=== PATIENT | female | born 1950 | race African-American/Black ===

== ENCOUNTER 2017-09-02 14:33 | Outpatient (CLI) | payer MEDICARE, MEDICAID ==
[~2017-09-02] VITALS: Ht 162.6 cm; Wt 52.2 kg
[2017-09-02 15:31] VITALS: BP 112/63
[2017-09-02] MEDS ORDERED: UNOBMED (15:43)
[2017-09-02] MEDS ORDERED: BP med (15:43)
--- NOTE | 2017-09-02 16:26 | GI Initial Consult Note ---
History of Present Illness General Date patient seen: Sep 02, 2017 Time patient seen: 16:21 Referring physician: Dr. Suggs Reason for Consultation: s/p ERCP, CBD Stone Present Illness HPI 66 year female patient seen by Dr. Duran at [facility] presents today to clinic for follow up s/p ERCP, noted with stent placement for biliary stricture and CBD stone. History of HTN, HLD, Jaundice, anemia, ETOH and cirrhosis. No general GI complaints noted by the patient. Denies any unintentional weight loss or changes in dietary habits. Patient with unsteady gait is a fall risk. Home Meds Reported Medications Unable to Obtain Medications (UNABLE TO OBTAIN MEDS) 1 Ea Ea 09/02/17 [BP med] No Conflict Check 09/02/17 Med list reviewed/reconciled: Yes Allergies: Coded Allergies: IBUPROFEN (Verified Allergy, Unknown, 09/02/17) Patient History Past Surgical History: none Family History Narrative Mother and sister with history of Breast CA. Social History Narrative History of heavy ETOH use, but has quit. tobacco user 1 pack daily denies drug/caffeine use Review of Systems All Other Systems: negative except mentioned in HPI Physical Exam Vital Signs Date Time Temp Pulse Resp B/P (MAP) Pulse Ox O2 Delivery O2 Flow Rate FiO2 09/02/17 15:31 98.4 93 18 112/63 93 98.4 Sp02 EP Interpretation: reviewed, normal General Appearance: well appearing, no apparent distress, alert Head: normocephalic EENT: PERRL/EOMI, normal ENT inspection Neck: supple Respiratory: normal breath sounds, no respiratory distress Cardiovascular: normal rate Gastrointestinal: normal inspection, non tender, soft, normal bowel sounds, non -distended Rectal: deferred Genitourinary: no CVA tenderness Musculoskeletal: normal inspection, back normal Neurologic: normal inspection, alert, oriented x3, responsive Psychiatric: normal inspection, judgement/insight normal, memory normal Skin: normal inspection, normal color, no rash, warm/dry, palpation normal, well hydrated Lymphatic: normal inspection, no adenopathy GI: Plan Problems: (1) Biliary stricture (2) Jaundice (3) ETOH abuse (4) Alcoholic cirrhosis (5) HTN (hypertension) (6) HLD (hyperlipidemia) Plan EGD with ERCP planned for 10/04/17. - NPO @ [place] day prior procedure explained to patient. will schedule for colonoscopy after this procedure. start Ursodiol Seen with Dr. Duran. Thank you for this patient referral. Fatmata Torrez N.P. Sep 02, 2017 16:26
== END 2017-09-02 15:05 | disposition home or self-care (01) ==
LOC: PAN 14:33
DX: K70.30 Alcoholic cirrhosis of liver without ascites (principal); R17 Unspecified jaundice; K83.1 Obstruction of bile duct; F10.10 Alcohol abuse, uncomplicated; I10 Essential (primary) hypertension; E78.5 Hyperlipidemia, unspecified; F17.200 Nicotine dependence, unspecified, uncomplicated; Z88.6 Allergy status to analgesic agent
CPT/HCPCS: 99212

== ENCOUNTER 2017-09-21 10:33 | Outpatient (CLI) | payer MEDICARE, MEDICAID ==
[~2017-09-21 10:33] MED LIST: BP med; UNOBMED
[2017-09-21] MEDS ORDERED: AMLODIPINE BESYL5 MG ORAL (10:54)
[2017-09-21] MEDS ORDERED: COMBIVENT RESPIM4 GM IH (10:54)
[2017-09-21] MEDS ORDERED: CALCIUM + VITA1 EAC1 PO (10:54)
[2017-09-21] MEDS ORDERED: ALBUTEROL2.5 MG/3 M INH (10:54)
[2017-09-21] MEDS ORDERED: TRIAMTERENE-HC1 EAC5 ORAL (10:54)
[2017-09-21] MEDS ORDERED: CIPRO500 MG PO (10:54)
[2017-09-21] MEDS ORDERED: SIMVASTATIN20 MG ORAL (10:54)
[2017-09-21 10:55] VITALS: BP 124/64
--- NOTE | 2017-09-22 09:33 | GI Progress Note ---
Assessment/Plan Problems: (1) Alcoholic cirrhosis ICD Codes: K70.30 - Alcoholic cirrhosis of liver without ascites SNOMED: 406669831 (2) Biliary stricture ICD Codes: K83.1 - Obstruction of bile duct SNOMED: 781853665 (3) Jaundice ICD Codes: R17 - Unspecified jaundice SNOMED: 40003477 (4) ETOH abuse ICD Codes: F10.10 - Alcohol abuse, uncomplicated SNOMED: 06463632 Status: stable Status Narrative Seen with Dr. Duran. Assessment/Plan resume ursodiol plan for ERCP on 10/04/17. - NPO @ [place] day prior procedure. low salt diet Subjective Subjective right foot swelling abdominal pain Objective Last 24 Hour Vital Signs Date Time Temp Pulse Resp B/P (MAP) Pulse Ox O2 Delivery O2 Flow Rate FiO2 09/21/17 10:55 97.7 81 16 124/64 95 97.7 General Appearance: WD/WN, no apparent distress, alert Cardiovascular: normal rate Respiratory/Chest: normal breath sounds, no respiratory distress Abdominal Exam: normal bowel sounds, non tender, soft Extremities: normal range of motion, non-tender Fatmata Torrez N.PLenin September 22, 2017 09:33
== END 2017-09-21 11:05 | disposition home or self-care (01) ==
LOC: PAN 10:33
DX: K70.30 Alcoholic cirrhosis of liver without ascites (principal); K83.1 Obstruction of bile duct; R17 Unspecified jaundice; F10.10 Alcohol abuse, uncomplicated
CPT/HCPCS: 99212

== ENCOUNTER 2017-10-04 07:25 | Day surgery (SDC) | payer MEDICARE, MEDICAID ==
[~2017-10-04] VITALS: Ht 162.6 cm; Wt 50.3 kg
[2017-10-04] VITALS (9 sets, daily range): BP systolic 110–155; BP diastolic 57–82
[~2017-10-04 07:25] MED LIST changes: +ALBUTEROL2.5 MG/3 M INH; +AMLODIPINE BESYL5 MG ORAL; +CALCIUM + VITA1 EAC1 PO; +CIPRO500 MG PO; +COMBIVENT RESPIM4 GM IH; +SIMVASTATIN20 MG ORAL; +TRIAMTERENE-HC1 EAC5 ORAL
[2017-10-04] MEDS ORDERED: Iothalamate Meglumine 60% 30ML INJ ONE ×2 (07:46→09:20)
--- NOTE | 2017-10-04 08:47 | Short Stay Surgery H&P ---
History of Present Illness History of Present Illness Chief Complaint see recent consult note HPI Jeannette Rodriguez is a 66 year old female who was admitted on for ERCP Patient History Allergies: Coded Allergies: No Known Allergies (Unverified , 10/04/17) Medication History Scheduled Calcium Carbonate/Vitamin D3 (Calcium + Vitamin D Tablet), 1 EACH PO DAILY, ( Reported) Simvastatin (Zocor), 20 MG ORAL BEDTIME, (Reported) Triamterene/Hydrochlorothiazide* (Dyazide 37.5-25 Mg Tab*), 1 TAB ORAL DAILY, ( Reported) Discontinued Medications Albuterol Sulfate* (Albuterol Sulfate Hhn*), 3 ML INH Q4H PRN for Shortness of Breath, (Reported) Discontinued Reason: Pt stopped taking med Amlodipine Besylate* (Amlodipine Besylate*), 5 MG ORAL DAILY, (Reported) Discontinued Reason: Pt stopped taking med Ciprofloxacin* (Cipro*), 500 MG PO BID, (Reported) Discontinued Reason: Medication dose changed Ipratropium/Albuterol Sulfate (Combivent Respimat Inhal [place]), 4 GM IH QID, ( Reported) Discontinued Reason: Pt stopped taking med Physical Exam Vital Signs Last Vital Signs Date Time Temp Pulse Resp B/P (MAP) Pulse Ox O2 Delivery O2 Flow Rate FiO2 10/04/17 08:12 97.2 80 18 132/79 98 Room Air 97.2 Labs Laboratory Tests Test 10/04/17 08:35 White Blood Count Pending Red Blood Count Pending Hemoglobin Pending Hematocrit Pending Mean Corpuscular Volume Pending Mean Corpuscular Hemoglobin Pending Mean Corpuscular Hemoglobin Concent Pending Red Cell Distribution Width Pending Platelet Count Pending Mean Platelet Volume Pending Neutrophils (%) (Auto) Pending Lymphocytes (%) (Auto) Pending Monocytes (%) (Auto) Pending Eosinophils (%) (Auto) Pending Basophils (%) (Auto) Pending Sodium Level Pending Potassium Level Pending Chloride Level Pending Carbon Dioxide Level Pending Blood Urea Nitrogen Pending Creatinine Pending Estimat Glomerular Filtration Rate Pending Glucose Level Pending Calcium Level Pending Total Bilirubin Pending Aspartate Amino Transf (AST/SGOT) Pending Alanine Aminotransferase (ALT/SGPT) Pending Alkaline Phosphatase Pending Total Protein Pending Albumin Pending Globulin Pending Amylase Level Pending Lipase Pending Plan Attestation Are the patient's medical conditions optimized for surgery? Abdirashid Duran MD October 04, 2017 08:47
--- NOTE | 2017-10-04 08:47 | Pre-Procedure Note/Attestation ---
Pre-Procedure Note/Attestation Complete Prior to Procedure Planned Procedure: not applicable Procedure Narrative: ercp Indications for Procedure Pre-Operative Diagnosis: stent removal Attestation I attest that I discussed the nature of the procedure; its benefits; risks and complications; and alternatives (and the risks and benefits of such alternatives ), prior to the procedure, with the patient (or the patient's legal traffic workforce representative). I attest that, if there was a reasonable possibility of needing a blood transfusion, the patient (or the patient's legal traffic workforce representative) was given the [facility] standardized written summary, pursuant to the [place] Blood Safety Act ([place] Health and Safety Code # 1645, as amended). I attest that I re-evaluated the patient just prior to the surgery and that there has been no change in the patient's H&P, except as documented below: Abdirashid Duran MD October 04, 2017 08:47
[2017-10-04 08:48] LABS: BASOPHILS % (AUTO) 1.9 % (0.0-2.0); EOSINOPHILS % (AUTO) 2.8 % (0.0-3.0); HEMATOCRIT 31.9 % (37.0-47.0); HEMOGLOBIN 10.4 G/DL (12.0-16.0); LYMPHOCYTES % (AUTO) 32.5 % (20.0-45.0); MEAN CORPUSCULAR VOLUME 98 FL (80-99); MONOCYTES % (AUTO) 10.8 % (1.0-10.0); NEUTROPHILS % (AUTO) 52.1 % (45.0-75.0); PLATELET COUNT 199 K/UL (150-450); RED BLOOD COUNT 3.27 M/UL (4.20-5.40); WHITE BLOOD COUNT 4.1 K/UL (4.8-10.8)
[2017-10-04] MEDS ORDERED: Lidocaine 1% MPF 10mg/ml 5ml ONE (09:00)
[2017-10-04] MEDS ORDERED: LR 1000ml ONE (09:00)
[2017-10-04] MEDS ORDERED: Alfentanil 2ml Inj ONE (09:00)
[2017-10-04] MEDS ORDERED: Ketamine 500mg Inj ONE (09:00)
[2017-10-04] MEDS ORDERED: Propofol 200mg/20ml IV ONE (09:00)
[2017-10-04] MEDS ORDERED: Midazolam 2mg/2ml Inj ONE (09:00)
[2017-10-04 09:14] LABS: ANION GAP 6 mmol/L (5-15); BLOOD UREA NITROGEN 8 mg/dL (7-18); CALCIUM 8.7 MG/DL (8.5-10.1); CARBON DIOXIDE 29 MMOL/L (21-32); CHLORIDE 104 MMOL/L (98-107); CREATININE 0.7 MG/DL (0.55-1.30); POTASSIUM 3.2 MMOL/L (3.5-5.1); SODIUM 139 MMOL/L (136-145)
[2017-10-04] MEDS ORDERED: LR 1000ml 1,000 ML IVLG SCH (09:20)
[2017-10-04 09:24] LABS: INR 1.1 (0.9-1.1)
[2017-10-04 09:25] LABS: ALANINE AMINOTRANSFERASE 28 U/L (12-78); ALBUMIN 1.8 G/DL (3.4-5.0); ALBUMIN/GLOBULIN RATIO 0.3 (1.0-2.7); ALKALINE PHOSPHATASE 148 U/L (46-116); AMYLASE 113 U/L (25-115); ASPARTATE AMINO TRANSFERASE 67 U/L (15-37); BILIRUBIN,DIRECT 2.9 MG/DL (0.0-0.3); BILIRUBIN,TOTAL 3.4 MG/DL (0.2-1.0)
[2017-10-04] MEDS ORDERED: Norco 5mg/325mg tab ORAL PRN (09:30)
[2017-10-04] MEDS ORDERED: LORazepam Inj 2mg/ml 1ml IV PRN (09:30)
[2017-10-04] MEDS ORDERED: Ketorolac 30mg Inj IV PRN ×2 (09:30)
[2017-10-04] MEDS ORDERED: Atropine Inj 1mg/10ml Syr IV PRN (09:30)
[2017-10-04] MEDS ORDERED: Labetalol 5mg/ml 20ml vial IV PRN (09:30)
[2017-10-04] MEDS ORDERED: Metoclopramide 10mg/2ml Inj IVP PRN (09:30)
[2017-10-04] MEDS ORDERED: fentaNYL 100 mcg/2 mL IV PRN (09:30)
[2017-10-04] MEDS ORDERED: DiphenhydrAMINE 50mg/ml Inj IVP PRN (09:30)
[2017-10-04] MEDS ORDERED: oxyCODONE HCL/Acetaminophen 5/325mg ORAL PRN (09:30)
[2017-10-04] MEDS ORDERED: Midazolam 2mg/2ml Inj IVP PRN (09:30)
[2017-10-04] MEDS ORDERED: HYDROcodone/Acetamin 7.5/325 tab ORAL PRN (09:30)
--- NOTE | 2017-10-04 09:31 | Immediate Post-Op Evaluation ---
Immediate Post-Op Evalulation Immediate Post-Op Evalulation Procedure: ERCP Date of Evaluation: October 04, 2017 Time of Evaluation: 10:24 IV Fluids: 600 NS Blood Products: 0 Estimated Blood Loss: 1 Urinary Output: 0 Blood Pressure Systolic: 133 Blood Pressure Diastolic: 78 Pulse Rate: 87 Respiratory Rate: 16 O2 Sat by Pulse Oximetry: 100 Temperature (Fahrenheit): 97 Pain Score (1-10): 2 Nausea: No Vomiting: No Complications 0 Patient Status: awake, reacts, patent, none Hydration Status: adequate Venu Hernandez MD October 04, 2017 09:31
--- NOTE | 2017-10-04 09:31 | Anethesia Preoperative Eval ---
Anesthesia Pre-op PMH/ROS General Date of Evaluation: October 04, 2017 Time of Evaluation: 08:51 Anesthesiologist: Salty ASA Score: ASA 3 Mallampati Score Class I : Soft palate, uvula, fauces, pillars visible Class II: Soft palate, uvula, fauces visible Class III: Soft palate, base of uvula visible Class IV: Only hard plate visible Mallampati Classification: Class II Surgeon: Renee Diagnosis: Weight Loss Surgical Procedure: ERCP Anesthesia History: none Social History: current smoker, alcohol use - Abuse Family History: no anesthesia problems Allergies: Coded Allergies: No Known Allergies (Unverified , 10/04/17) Medications: see eMAR Past Medical History Cardiovascular: Reports: HTN, other - HL Pulmonary: Reports: COPD Hematology/Immune: Reports: anemia PSxH Narrative: ERCP Anesthesia Pre-op Phys. Exam Physician Exam Last Vital Signs Date Time Temp Pulse Resp B/P (MAP) Pulse Ox O2 Delivery O2 Flow Rate FiO2 10/04/17 08:12 97.2 80 18 132/79 98 Room Air 97.2 Constitutional: NAD Neurologic: CN 2-12 intact Cardiovascular: RRR Respiratory: CTA Gastrointestinal: S/NT/ND Airway Exam Mallampati Score: Class II MO: full ROM: full Teeth: missing Anesthesia Pre-op A/P Labs Hematology Test 10/04/17 08:35 White Blood Count 4.1 K/UL (4.8-10.8) L Red Blood Count 3.27 M/UL (4.20-5.40) L Hemoglobin 10.4 G/DL (12.0-16.0) L Hematocrit 31.9 % (37.0-47.0) L Mean Corpuscular Volume 98 FL (80-99) Mean Corpuscular Hemoglobin 31.8 PG (27.0-31.0) H Mean Corpuscular Hemoglobin Concent 32.6 G/DL (32.0-36.0) Red Cell Distribution Width 12.0 % (11.6-14.8) Platelet Count 199 K/UL (150-450) Mean Platelet Volume 7.8 FL (6.5-10.1) Neutrophils (%) (Auto) 52.1 % (45.0-75.0) Lymphocytes (%) (Auto) 32.5 % (20.0-45.0) Monocytes (%) (Auto) 10.8 % (1.0-10.0) H Eosinophils (%) (Auto) 2.8 % (0.0-3.0) Basophils (%) (Auto) 1.9 % (0.0-2.0) Coagulation Test 10/04/17 09:05 Prothrombin Time Pending Prothromb Time International Ratio Pending Activated Partial Thromboplast Time Pending Chemistry Test 10/04/17 08:35 Sodium Level 139 MMOL/L (136-145) Potassium Level 3.2 MMOL/L (3.5-5.1) L Chloride Level 104 MMOL/L (98-107) Carbon Dioxide Level 29 MMOL/L (21-32) Anion Gap 6 mmol/L (5-15) Blood Urea Nitrogen 8 mg/dL (7-18) Creatinine 0.7 MG/DL (0.55-1.30) Estimat Glomerular Filtration Rate > 60 mL/min (>60) Glucose Level 77 MG/DL (74-106) Calcium Level 8.7 MG/DL (8.5-10.1) Total Bilirubin Pending Aspartate Amino Transf (AST/SGOT) Pending Alanine Aminotransferase (ALT/SGPT) Pending Alkaline Phosphatase Pending Total Protein Pending Albumin Pending Globulin Pending Amylase Level Pending Lipase Pending Risk Assessment & Plan Assessment: ASA 3 Plan: GA Status Change Before Surgery: Venu Machado MD October 04, 2017 09:31
--- NOTE | 2017-10-04 09:32 | 48 Hour Post Anesthesia Eval ---
Post Anesthesia Evaluation Procedure: ERCP Date of Evaluation: October 04, 2017 Time of Evaluation: 12:32 Blood Pressure Systolic: 136 0: 81 Pulse Rate: 87 Respiratory Rate: 18 Temperature (Fahrenheit): 98.1 O2 Sat by Pulse Oximetry: 100 Airway: patent Nausea: No Vomiting: No Pain Intensity: 2 Hydration Status: adequate Cardiopulmonary Status: Stable Mental Status/LOC: patient returned to baseline Follow-up Care/Observations: 0 Post-Anesthesia Complications: 0 Follow-up care needed: ready to discharge Venu Hernandez MD October 04, 2017 09:32
--- NOTE | 2017-10-04 11:19 | Endoscopy Procedure Note ---
Endoscopy Procedure Note General Indication for Procedure: CBD stent Procedures Performed: ERCP Operative Findings/Diagnosis: same Specimen: yes Pt Tolerated Procedure Well: Yes Estimated Blood Loss: none Anesthesia Anesthesiologist: ernesto Anesthesia: MAC Inserted Devices Implant(s) used?: No GI Core Measures 50 yrs or older w/o bx or poly: Not Applicable 10yrs. F/U not recommended: Not Applicable Abdirashid Duran MD October 04, 2017 11:19
--- NOTE | 2017-10-04 11:51 | Diagnostic Imaging Report ---
Indication: Abdominal pain. ERCP. Findings: Fluoroscopically captured images of the right upper quadrant of the abdomen demonstrate an endoscope with cannulation of the common bile duct and injection of contrast material. Prominent biliary ducts demonstrated. Inflation of the balloon in the distal part of the CBD noted for treatment of an apparent stricture. Subsequent placement of a stent noted. 20 fluoroscopic images obtained. Impression: ERCP as above
--- NOTE | 2017-10-04 13:50 | Cardiology Report ---
APPROVED REPORT EKG Measurement Heart [id number] Normal sinus rhythm Anterior infarct, age undetermined Abnormal ECG
--- NOTE | 2017-10-04 16:30 | Procedure Note ---
DATE OF PROCEDURE: 10/04/2017 SURGEON: Abdirashid Duran M.D. PROCEDURE PERFORMED: ERCP with stent removal, stone removal, dilatation, brush biopsy, regular biopsy, stent placement. ANESTHESIA: Per Dr. Hernandez. INSTRUMENT: Olympus adult flexible ERCP scope. INDICATION: Biliary stricture, biliary stone, stent removal. The procedure, risks, benefits, and possible consequences, including hemorrhage, aspiration, perforation and infection, and alternative treatments, were explained to the patient/legal guardian by Dr. Abdirashid Duran and the patient/legal guardian understood and accepted these risks. DESCRIPTION OF PROCEDURE: After informed consent was obtained and the patient was adequately sedated, ERCP scope was advanced from the mouth into the second portion of duodenum. Using a snare, the stent was removed from the distal common bile duct. Then a balloon was used to cannulate the common bile duct. Initial cholangiogram showed dilated common bile duct to about 12 mm in the proximal common bile duct. As we got close to the ampulla, sharply this 12 mm shrunk to about maybe 4 to 6 mm quickly. This suggests maybe a narrowing or stricture in the distal common bile duct. Then, over a guidewire, first we dilated distal common bile duct to about 8 mm using a standard balloon technology. Then, we used a balloon to sweep the duct multiple times to remove some very tiny small stones. No obvious big stone was removed. Then, we over a guidewire did insert brush and then, we did multiple simple biopsies of her distal common bile duct stricture area. I did not feel that the drainage of the common bile duct was adequate, so we decided to put another stent back in and we put a 10-Ken[place] 5 cm stent back into the common bile duct. The patient tolerated the procedure well without any complication. SUMMARY OF FINDINGS: 1. Questionable distal common bile duct stricture and also positive small tiny stones. 2. Status post ERCP, stent exchange, brush biopsy, simple biopsy, stone removal, dilatation, and stenting. RECOMMENDATIONS: 1. Follow up biopsy results and treat accordingly. 2. The patient needs to come back in the office for further evaluating the causes and possibility of the distal common bile duct stricture. 3. We will recommend repeat ERCP in about three months and removal of the stent. Abdirashid Yvette Duran DR: EDA JOB#: [id number] CC:
== END 2017-10-04 12:45 | disposition home or self-care (01) ==
LOC: SUR 07:25 → RAD 07:25
DX: K80.51 Calculus of bile duct without cholangitis or cholecystitis with obstruction (principal); I10 Essential (primary) hypertension; J44.9 Chronic obstructive pulmonary disease, unspecified; F17.200 Nicotine dependence, unspecified, uncomplicated
CPT/HCPCS: 36415; 43261; 43276; 74328; 76000; 80053; 82150; 82248; 82784; 82787; 83690; 85025; 85610; 85730; 86039; 93005; J2250; J2704; J3490; J7120; Q9961; 94003; 94150

== ENCOUNTER 2017-10-21 13:10 | Outpatient (CLI) | payer MEDICARE, MEDICAID ==
--- NOTE | 2017-10-21 16:16 | GI Progress Note ---
Assessment/Plan Problems: (1) Biliary stricture ICD Codes: K83.1 - Obstruction of bile duct SNOMED: 128831224 (2) Alcoholic cirrhosis ICD Codes: K70.30 - Alcoholic cirrhosis of liver without ascites SNOMED: 820101715 (3) Jaundice ICD Codes: R17 - Unspecified jaundice SNOMED: 06616419 (4) ETOH abuse ICD Codes: F10.10 - Alcohol abuse, uncomplicated SNOMED: 70858057 Status: stable Status Narrative Seen with Dr. Duran. Assessment/Plan SUMMARY OF FINDINGS: 1. Questionable distal common bile duct stricture and also positive small tiny stones. 2. Status post ERCP, stent exchange, brush biopsy, simple biopsy, stone removal , dilatation, and stenting. RECOMMENDATIONS: labs reviewed May need ERCP + metallic stent given history of CBD stricture cont ursodiol RTC x 2 months for ERCP scheduling for stent removal Subjective Gastrointestinal/Abdominal: Reports: no symptoms Objective General Appearance: WD/WN, no apparent distress, alert Cardiovascular: normal rate Respiratory/Chest: normal breath sounds, no respiratory distress Abdominal Exam: normal bowel sounds, non tender, soft Extremities: normal range of motion, non-tender Chris Torrez NP Oct 21, 2017 16:16
== END 2017-10-21 13:42 | disposition home or self-care (01) ==
LOC: PAN 13:10
DX: K83.1 Obstruction of bile duct (principal); K70.30 Alcoholic cirrhosis of liver without ascites; R17 Unspecified jaundice; F10.10 Alcohol abuse, uncomplicated
CPT/HCPCS: 99211

== ENCOUNTER 2017-10-28 09:38 | Outpatient (CLI) | payer MEDICARE, MEDICAID ==
[2017-10-28 10:07] LABS: BASOPHILS % (AUTO) 1.7 % (0.0-2.0); EOSINOPHILS % (AUTO) 3.3 % (0.0-3.0); HEMATOCRIT 38.3 % (37.0-47.0); HEMOGLOBIN 12.2 G/DL (12.0-16.0); MEAN CORPUSCULAR VOLUME 96 FL (80-99); MONOCYTES % (AUTO) 10.1 % (1.0-10.0); NEUTROPHILS % (AUTO) 40.9 % (45.0-75.0); PLATELET COUNT 206 K/UL (150-450); RED BLOOD COUNT 3.99 M/UL (4.20-5.40); RED CELL DISTRIBUTION WIDTH 11.5 % (11.6-14.8); WHITE BLOOD COUNT 4.7 K/UL (4.8-10.8)
[2017-10-28 10:10] LABS: INR 1.1 (0.9-1.1)
[2017-10-28 10:35] LABS: ALANINE AMINOTRANSFERASE 23 U/L (12-78); ALBUMIN 2.3 G/DL (3.4-5.0); ALBUMIN/GLOBULIN RATIO 0.3 (1.0-2.7); ALKALINE PHOSPHATASE 136 U/L (46-116); ANION GAP 4 mmol/L (5-15); ASPARTATE AMINO TRANSFERASE 48 U/L (15-37); BILIRUBIN,TOTAL 1.9 MG/DL (0.2-1.0); BLOOD UREA NITROGEN 9 mg/dL (7-18); CARBON DIOXIDE 31 MMOL/L (21-32); CHLORIDE 102 MMOL/L (98-107); CREATININE 0.8 MG/DL (0.55-1.30); POTASSIUM 3.1 MMOL/L (3.5-5.1); SODIUM 137 MMOL/L (136-145)
[2017-10-28 10:36] LABS: BILIRUBIN,DIRECT 1.5 MG/DL (0.0-0.3)
== END 2017-10-28 11:38 | disposition home or self-care (01) ==
LOC: LAB 09:38
DX: K74.60 Unspecified cirrhosis of liver (principal)
CPT/HCPCS: 80053; 82248; 85025; 85610

== ENCOUNTER 2017-12-21 10:20 | Outpatient (CLI) | payer MEDICARE, MEDICAID ==
--- NOTE | 2017-12-21 10:47 | GI Progress Note ---
Assessment/Plan Problems: (1) Biliary stricture ICD Codes: K83.1 - Obstruction of bile duct SNOMED: 286475742 (2) Alcoholic cirrhosis ICD Codes: K70.30 - Alcoholic cirrhosis of liver without ascites SNOMED: 349184727 (3) HLD (hyperlipidemia) ICD Codes: E78.5 - Hyperlipidemia, unspecified SNOMED: 23049065 (4) Jaundice ICD Codes: R17 - Unspecified jaundice SNOMED: 77078490 (5) ETOH abuse ICD Codes: F10.10 - Alcohol abuse, uncomplicated SNOMED: 92859646 Status: stable Status Narrative Seen with Dr. Duran. Assessment/Plan SUMMARY OF FINDINGS: Questionable distal common bile duct stricture and also positive small tiny stones. Status post ERCP, stent exchange, brush biopsy, simple biopsy, stone removal, dilatation, and stenting. RECOMMENDATIONS: ERCP scheduled 12/27/17 for stent removal. - NPO @ [place] day prior procedure explained to patient. The patient was seen and examined at bedside and all new and available data was reviewed in the patients chart. I agree with the above findings, impression and plan. (Patient seen earlier today. Signature stamp does not reflect patient encounter time.). - Abdirashid Duran MD Subjective Gastrointestinal/Abdominal: Reports: no symptoms Objective T 98.2 BP 144/76 P 87 97 RA General Appearance: WD/WN, no apparent distress, alert Cardiovascular: normal rate Respiratory/Chest: normal breath sounds, no respiratory distress Abdominal Exam: normal bowel sounds, non tender, soft Extremities: normal range of motion, non-tender Objective eyes have decreased jaundice Chris Torrez NP Dec 21, 2017 10:46
[2017-12-21 11:03] VITALS: BP 144/76
== END 2017-12-21 10:55 | disposition home or self-care (01) ==
LOC: PAN 10:20
DX: K83.1 Obstruction of bile duct (principal); K70.30 Alcoholic cirrhosis of liver without ascites; E78.5 Hyperlipidemia, unspecified; R17 Unspecified jaundice; F10.10 Alcohol abuse, uncomplicated
CPT/HCPCS: 99212

== ENCOUNTER 2018-01-03 13:09 | Outpatient (CLI) | payer MEDICARE, MEDICAID ==
[2018-01-03 13:17] VITALS: BP 117/61
--- NOTE | 2018-01-03 13:20 | GI Progress Note ---
Assessment/Plan Problems: (1) Biliary stricture ICD Codes: K83.1 - Obstruction of bile duct SNOMED: 238102921 (2) Alcoholic cirrhosis ICD Codes: K70.30 - Alcoholic cirrhosis of liver without ascites SNOMED: 521846555 (3) Jaundice ICD Codes: R17 - Unspecified jaundice SNOMED: 81950476 (4) ETOH abuse ICD Codes: F10.10 - Alcohol abuse, uncomplicated SNOMED: 08828577 Status: stable Status Narrative Discussed with Dr. Duran. Assessment/Plan SUMMARY OF FINDINGS reviewed with patient: History of common bile duct stricture etiology versus prior history of pancreatitis causing biliary stricture versus autoimmune given elevated IgG markers. PLAN: Plan will be to follow brush biopsy. >> no malignant cells identified. The patient to come back for another ERCP in three months. Next ERCP possibly have to put a metallic stent and a simple biopsy. Subjective Gastrointestinal/Abdominal: Reports: no symptoms Objective Last 24 Hour Vital Signs Date Time Temp Pulse Resp B/P (MAP) Pulse Ox O2 Delivery O2 Flow Rate FiO2 01/03/18 13:17 98.1 92 18 117/61 96 98.1 General Appearance: WD/WN, no apparent distress, alert Cardiovascular: normal rate Respiratory/Chest: normal breath sounds, no respiratory distress Abdominal Exam: normal bowel sounds, non tender, soft Extremities: normal range of motion, non-tender Chris Torrez FISCAL ECONOMIST Jan 03, 2018 13:20
== END 2018-01-03 13:41 | disposition home or self-care (01) ==
LOC: PAN 13:09
DX: K83.1 Obstruction of bile duct (principal); K70.30 Alcoholic cirrhosis of liver without ascites; R17 Unspecified jaundice; F10.10 Alcohol abuse, uncomplicated
CPT/HCPCS: 99212

== ENCOUNTER 2018-04-11 13:15 | Outpatient (CLI) | payer MEDICARE ==
[2018-04-11 13:29] VITALS: BP 121/62
[2018-04-11] MEDS ORDERED: URSODIOL300 MG ORAL (13:29)
--- NOTE | 2018-04-11 14:04 | GI Progress Note ---
Assessment/Plan Problems: (1) Biliary stricture ICD Codes: K83.1 - Obstruction of bile duct SNOMED: 451756566 (2) Alcoholic cirrhosis ICD Codes: K70.30 - Alcoholic cirrhosis of liver without ascites SNOMED: 872799510 (3) Jaundice ICD Codes: R17 - Unspecified jaundice SNOMED: 23270645 (4) ETOH abuse ICD Codes: F10.10 - Alcohol abuse, uncomplicated SNOMED: 72088296 Status: stable Status Narrative Discussed with Dr. Duran. Assessment/Plan ERCP to be scheduled 04/15/18. - NPO @ [place] day prior procedure. - labs to be drawn day of procedure >> BARBIE, IgG4 will follow with additional recs post procedure The patient was seen and examined at bedside and all new and available data was reviewed in the patients chart. I agree with the above findings, impression and plan. (Patient seen earlier today. Signature stamp does not reflect patient encounter time.). - Abdirashid Duran MD Subjective Subjective weight loss decrease in appetite Objective Last 24 Hour Vital Signs Date Time Temp Pulse Resp B/P (MAP) Pulse Ox O2 Delivery O2 Flow Rate FiO2 04/11/18 13:29 98.4 86 16 121/62 95 General Appearance: WD/WN, no apparent distress, alert, thin Cardiovascular: normal rate Respiratory/Chest: normal breath sounds, no respiratory distress Abdominal Exam: normal bowel sounds, non tender, soft Extremities: normal range of motion, non-tender Chris Torrez [employer] Apr 11, 2018 14:04
--- NOTE | 2018-04-11 15:29 | GI Initial Consult Note ---
History of Present Illness General Date patient seen: Apr 11, 2018 Time patient seen: 15:28 Reason for Consultation: STENT REMOVAL Present Illness HPI 66 year female patient seen by Dr. Duran at [facility] presents today for a repeat ERCP, s/p ERCP in December 2017 noted with common bile duct stricture etiology versus prior history of pancreatitis causing biliary stricture versus autoimmune given elevated IgG levels. History of HTN, HLD, Jaundice, anemia, ETOH and cirrhosis. Patient reports weight loss and decrease in appetite. Patient has unsteady gait and is a fall risk. Home Meds Reported Medications Ursodiol (URSODIOL*) 300 Mg Capsule, 300 MG ORAL TWICE A DAY, #30 CAP 0 Refills 04/11/18 Triamterene/Hydrochlorothiazide* (DYAZIDE 37.5-25 MG TAB*) 1 Each Tablet, 1 TAB ORAL DAILY, TAB 09/21/17 Simvastatin (ZOCOR) 20 Mg Tablet, 20 MG ORAL BEDTIME, TAB 09/21/17 Med list reviewed/reconciled: Yes Allergies: Coded Allergies: No Known Allergies (Unverified , 12/27/17) Patient History PMH Narrative see HPI. Past Surgical History: none Family History Narrative Mother and sister with history of Breast CA. Social History Narrative History of heavy ETOH use, but has quit. tobacco user 1 pack daily denies drug/caffeine use Social History: Denies: smoking, alcohol use, drug use, other Review of Systems All Other Systems: negative except mentioned in HPI Physical Exam Vital Signs Date Time Temp Pulse Resp B/P (MAP) Pulse Ox O2 Delivery O2 Flow Rate FiO2 04/11/18 13:29 98.4 86 16 121/62 95 Sp02 EP Interpretation: reviewed, normal General Appearance: well appearing, no apparent distress, alert, thin Head: normocephalic EENT: PERRL/EOMI, normal ENT inspection Neck: supple Respiratory: normal breath sounds, no respiratory distress Cardiovascular: normal rate Gastrointestinal: normal inspection, non tender, soft, normal bowel sounds, non -distended Rectal: deferred Genitourinary: no CVA tenderness Musculoskeletal: normal inspection, back normal Neurologic: normal inspection, alert, oriented x3, responsive Psychiatric: normal inspection, judgement/insight normal, memory normal Skin: normal inspection, normal color, no rash, warm/dry, palpation normal, well hydrated Lymphatic: normal inspection, no adenopathy GI: Plan Problems: (1) Biliary stricture (2) Alcoholic cirrhosis (3) Jaundice (4) HLD (hyperlipidemia) (5) HTN (hypertension) Plan ERCP for stent removal/possible metallic stent placement/biopsy to be scheduled 04/15/18. - NPO @ [place] day prior procedure. - labs to be drawn day of procedure >> BARBIE, IgG4 will follow with additional recs post procedure The patient was seen and examined at bedside and all new and available data was reviewed in the patients chart. I agree with the above findings, impression and plan. (Patient seen earlier today. Signature stamp does not reflect patient encounter time.). - MD [facility] Apr 11, 2018 15:29
== END 2018-04-11 13:45 | disposition home or self-care (01) ==
LOC: PAN 13:15
DX: K83.1 Obstruction of bile duct (principal); K70.30 Alcoholic cirrhosis of liver without ascites; E78.5 Hyperlipidemia, unspecified; I10 Essential (primary) hypertension; D64.9 Anemia, unspecified; F17.200 Nicotine dependence, unspecified, uncomplicated
CPT/HCPCS: 99202

== ENCOUNTER 2018-04-15 07:20 | Day surgery (SDC) | payer MEDICARE, MEDICAID ==
[2018-04-15] VITALS (9 sets, daily range): BP systolic 111–131; BP diastolic 63–74
[~2018-04-15] VITALS: Ht 162.6 cm; Wt 51.7 kg
[~2018-04-15 07:20] MED LIST changes: +URSODIOL300 MG ORAL
[2018-04-15] MEDS ORDERED: Iothalamate Meglumine 60% 30ML INJ ONE ×2 (07:53→09:30)
[2018-04-15] MEDS ORDERED: Succinylcholine 20mg/ml 10ml vial ONE (08:12)
[2018-04-15] MEDS ORDERED: Midazolam 2mg/2ml Inj ONE (08:12)
[2018-04-15] MEDS ORDERED: fentaNYL 100 mcg/2 mL IV ONE (08:12)
[2018-04-15] MEDS ORDERED: Propofol 200mg/20ml IV ONE (08:13)
--- NOTE | 2018-04-15 08:31 | Anethesia Preoperative Eval ---
Anesthesia Pre-op PMH/ROS General Date of Evaluation: Apr 15, 2018 Time of Evaluation: 08:28 Anesthesiologist: Rhiannon Thomas CRNA ASA Score: ASA 3 Mallampati Score Class I : Soft palate, uvula, fauces, pillars visible Class II: Soft palate, uvula, fauces visible Class III: Soft palate, base of uvula visible Class IV: Only hard plate visible Mallampati Classification: Class II Surgeon: Renee Diagnosis: Biliary stricture Surgical Procedure: ERCP Anesthesia History: none Social History: smoking - 52 pack years, current smoker, alcohol use - alcoholic cirrhosis Family History: no anesthesia problems Allergies: Coded Allergies: No Known Allergies (Unverified , 12/27/17) Medications: see eMAR Patient NPO?: Yes NPO Date: Apr 15, 2018 NPO Time: 00:00 Past Medical History Cardiovascular: Reports: HTN, other - Hyperlipidemia; Denies: CAD, [place], valve dz, arrhythmia Pulmonary: Denies: asthma, COPD, NAFISA, other Gastrointestinal/Genitourinary: Reports: other - jaundice, alcoholic cirrhosis ; biliary stricture of unknown etioloyg; Denies: GERD, CRI, ESRD Neurologic/Psychiatric: Denies: dementia, CVA, depression/anxiety, TIA, other Endocrine: Denies: DM, hypothyroidism, steroids, other HEENT: Denies: cataract (L), cataract (R), glaucoma, [place] (L), [place] (R), other Hematology/Immune: Reports: anemia; Denies: DVT, bleeding disorder, other Musculoskeletal/Integumentary: Denies: OA, RA, DJD, DDD, edema, other PMH Narrative: as above PSxH Narrative: ERCP December 2017 Anesthesia Pre-op Phys. Exam Physician Exam Last Vital Signs Date Time Temp Pulse Resp B/P (MAP) Pulse Ox O2 Delivery O2 Flow Rate FiO2 04/15/18 08:24 97.6 84 20 118/63 95 Room Air Constitutional: NAD Neurologic: CN 2-12 intact Cardiovascular: RRR Respiratory: CTA Gastrointestinal: S/NT/ND Airway Exam Mallampati Score: Class II MO: full Neck: no limitations TMD: 3 FB ROM: full Teeth: missing, broken Dentures: upper Anesthesia Pre-op A/P Labs labs from December 2017 reviewed Studies Pre-op Studies: EKG - NSR, low voltage QRS, borderline EKG Risk Assessment & Plan Assessment: ASA 3, ok to proceed Plan: MAC Status Change Before Surgery: No Pre-Antibiotics Given Within 1 Hr of Incision: Rhiannon Castillo CRNA Apr 15, 2018 08:31
--- NOTE | 2018-04-15 08:59 | Pre-Procedure Note/Attestation ---
Pre-Procedure Note/Attestation Complete Prior to Procedure Planned Procedure: not applicable Procedure Narrative: ercp Indications for Procedure Pre-Operative Diagnosis: CBD stricture Attestation I attest that I discussed the nature of the procedure; its benefits; risks and complications; and alternatives (and the risks and benefits of such alternatives ), prior to the procedure, with the patient (or the patient's legal senior sales representative). I attest that, if there was a reasonable possibility of needing a blood transfusion, the patient (or the patient's legal senior sales representative) was given the [facility] standardized written summary, pursuant to the Ron Ha Blood Safety Act ([place] Health and Safety Code # 1645, as amended). I attest that I re-evaluated the patient just prior to the surgery and that there has been no change in the patient's H&P, except as documented below: Abdirashid Duran MD Apr 15, 2018 08:59
[2018-04-15] MEDS ORDERED: LR 1000ml ONE (09:00)
--- NOTE | 2018-04-15 09:00 | Short Stay Surgery H&P ---
History of Present Illness History of Present Illness Chief Complaint see recent office note HPI Jeannette Rodriguez is a 67 year old female who was admitted on for Biliary Stricture Patient History Allergies: Coded Allergies: No Known Allergies (Unverified , 12/27/17) Medication History Scheduled Simvastatin (Zocor), 20 MG ORAL BEDTIME, (Reported) Triamterene/Hydrochlorothiazide* (Dyazide 37.5-25 Mg Tab*), 1 TAB ORAL DAILY, ( Reported) Ursodiol (Ursodiol*), 300 MG ORAL TWICE A DAY, (Reported) Physical Exam Vital Signs Last Vital Signs Date Time Temp Pulse Resp B/P (MAP) Pulse Ox O2 Delivery O2 Flow Rate FiO2 04/15/18 08:24 97.6 84 20 118/63 95 Room Air Labs Laboratory Tests Test 04/15/18 08:40 White Blood Count Pending Red Blood Count Pending Hemoglobin Pending Hematocrit Pending Mean Corpuscular Volume Pending Mean Corpuscular Hemoglobin Pending Mean Corpuscular Hemoglobin Concent Pending Red Cell Distribution Width Pending Platelet Count Pending Mean Platelet Volume Pending Neutrophils (%) (Auto) Pending Lymphocytes (%) (Auto) Pending Monocytes (%) (Auto) Pending Eosinophils (%) (Auto) Pending Basophils (%) (Auto) Pending Sodium Level Pending Potassium Level Pending Chloride Level Pending Carbon Dioxide Level Pending Blood Urea Nitrogen Pending Creatinine Pending Estimat Glomerular Filtration Rate Pending Glucose Level Pending Calcium Level Pending Total Bilirubin Pending Aspartate Amino Transf (AST/SGOT) Pending Alanine Aminotransferase (ALT/SGPT) Pending Alkaline Phosphatase Pending Total Protein Pending Albumin Pending Globulin Pending Immunoglobulin G Pending Immunoglobulin G1 Pending Immunoglobulin G2 Pending Immunoglobulin G3 Pending Immunoglobulin G4 Pending Anti-Nuclear Antibody Screen Pending Plan Attestation Are the patient's medical conditions optimized for surgery? Abdirashid Duran MD Apr 15, 2018 09:00
[2018-04-15 09:20] LABS: ANION GAP 9 mmol/L (5-15); BLOOD UREA NITROGEN 12 mg/dL (7-18); CALCIUM 9.6 MG/DL (8.5-10.1); CARBON DIOXIDE 27 MMOL/L (21-32); CHLORIDE 101 MMOL/L (98-107); CREATININE 0.8 MG/DL (0.55-1.30); POTASSIUM 3.8 MMOL/L (3.5-5.1); SODIUM 137 MMOL/L (136-145)
[2018-04-15 09:25] LABS: ALANINE AMINOTRANSFERASE 18 U/L (12-78); ALBUMIN/GLOBULIN RATIO 0.5 (1.0-2.7); ALKALINE PHOSPHATASE 120 U/L (46-116); ASPARTATE AMINO TRANSFERASE 24 U/L (15-37); BASOPHILS % (AUTO) 1.1 % (0.0-2.0); BILIRUBIN,TOTAL 0.6 MG/DL (0.2-1.0); EOSINOPHILS % (AUTO) 1.8 % (0.0-3.0); HEMATOCRIT 37.3 % (37.0-47.0); HEMOGLOBIN 12.1 G/DL (12.0-16.0); LYMPHOCYTES % (AUTO) 27.2 % (20.0-45.0); MEAN CORPUSCULAR VOLUME 91 FL (80-99); MONOCYTES % (AUTO) 8.4 % (1.0-10.0); NEUTROPHILS % (AUTO) 61.5 % (45.0-75.0); PLATELET COUNT 268 K/UL (150-450); RED BLOOD COUNT 4.11 M/UL (4.20-5.40); WHITE BLOOD COUNT 4.9 K/UL (4.8-10.8)
--- NOTE | 2018-04-15 09:48 | Endoscopy Procedure Note ---
Endoscopy Procedure Note General Indication for Procedure: biliary stricture Procedures Performed: ERCP Operative Findings/Diagnosis: same Specimen: yes Pt Tolerated Procedure Well: Yes Estimated Blood Loss: none Anesthesia Anesthesiologist: see chart Anesthesia: MAC Inserted Devices Implant(s) used?: No GI Core Measures 50 yrs or older w/o bx or poly: Not Applicable 10yrs. F/U not recommended: Not Applicable Abdirashid Duran MD Apr 15, 2018 09:47
--- NOTE | 2018-04-15 10:02 | Immediate Post-Op Evaluation ---
Immediate Post-Op Evalulation Immediate Post-Op Evalulation Procedure: ERCP with stent removal and replacement, stone removal Date of Evaluation: Apr 15, 2018 Time of Evaluation: 09:51 IV Fluids: LR 600 ml Blood Pressure Systolic: 125 Blood Pressure Diastolic: 68 Pulse Rate: 90 Respiratory Rate: 22 O2 Sat by Pulse Oximetry: 99 Temperature (Fahrenheit): 97.4 Pain Score (1-10): 0 Nausea: No Vomiting: No Complications none Patient Status: awake, reacts, patent Hydration Status: adequate Given Within 1 Hr of Incision: Rhiannon Castillo CRNA Apr 15, 2018 10:02
--- NOTE | 2018-04-15 10:39 | 48 Hour Post Anesthesia Eval ---
Post Anesthesia Evaluation Procedure: ERCP with stent removal and replacement, stone removal Date of Evaluation: Apr 15, 2018 Time of Evaluation: 10:37 Blood Pressure Systolic: 131 0: 74 Pulse Rate: 79 Respiratory Rate: 15 Temperature (Fahrenheit): 97.2 O2 Sat by Pulse Oximetry: 94 Airway: patent Nausea: No Vomiting: No Pain Intensity: 0 Hydration Status: adequate Cardiopulmonary Status: stable Mental Status/LOC: patient returned to baseline Follow-up Care/Observations: per GI Post-Anesthesia Complications: none Follow-up care needed: ready to discharge Rhiannon Thomas CRNA Apr 15, 2018 10:39
--- NOTE | 2018-04-15 11:35 | Diagnostic Imaging Report ---
INDICATION: Pain, intraoperative images during ERCP by Dr. Duran, jaundice, biliary stricture TECHNIQUE: Intraoperative imaging Fluoroscopy time: 3.5 seconds Total dose: 286 dGym2 Total number of images: 10 COMPARISON: 12/27/2017 FINDINGS: Initial image demonstrates a plastic endobiliary stent. Subsequent images demonstrate opacification of dilated common bile duct, common hepatic duct, and central intrahepatic ducts. Subsequent images demonstrate replacement of the plastic endobiliary stent. IMPRESSION: Intraoperative imaging, as described
--- NOTE | 2018-04-15 16:45 | Procedure Note ---
DATE OF PROCEDURE: 04/15/2018 SURGEON: Abdirashid Duran M.D. ANESTHESIOLOGIST: FILOMENA. PROCEDURE: ERCP with stent removal, balloon sweep, biopsy, and stent placement. ANESTHESIA: Per [facility]. Please see the chart. INSTRUMENT: Olympus ERCP scope. INDICATION: Biliary stricture, jaundice. The procedure, risks, benefits, and possible consequences, including hemorrhage, aspiration, perforation and infection, and alternative treatments, were explained to the patient/legal guardian by Dr. Abdirashid Duran and the patient/legal guardian understood and accepted these risks. DESCRIPTION OF PROCEDURE: After informed consent was obtained and the patient was adequately sedated, the ERCP scope was advanced from the mouth into the second portion of duodenum. The stent was still in the common bile duct. Using a snare, the stent was successfully removed. Then, we used a standard cannula to cannulate the common bile duct. Initial cholangiogram showed dilated proximal duct to about at least 12 mm with narrowing of the distal common bile duct or stricture in the distal common bile duct close to the ampulla. Then over a guidewire, we introduced the balloon to the duct and swept the duct. There was no obvious stone seen in the duct. We performed balloon occlusion cholangiogram which showed the same thing. Then we introduced the pediatric biopsy forceps and biopsied distal common bile duct. 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 Then at this time, over a guidewire, a 10-Jordanian 5 cm stent was successfully placed. After the stent was placed, the bile started draining much better. SUMMARY OF FINDINGS: 1. Persistent distal common bile duct stricture of unknown etiology at this time. 2. Status post biopsy of the ampulla and distal common bile duct to rule out autoimmune cholangiopathy. 3. Status post stent exchange. RECOMMENDATIONS: Follow up biopsy results and treat accordingly. Abdirashid Duran M.D. DR: Claudia JOB#: [id number] CC:
== END 2018-04-15 11:15 | disposition home or self-care (01) ==
LOC: GAS 07:20
DX: K83.1 Obstruction of bile duct (principal); R17 Unspecified jaundice; I10 Essential (primary) hypertension; E78.5 Hyperlipidemia, unspecified; D64.9 Anemia, unspecified
CPT/HCPCS: 36415; 43264; 43276; 74328; 76000; 80053; 82784; 82787; 85025; 86039; J0330; J2250; J2704; J3010; Q9961; 94003; 94150

== ENCOUNTER 2018-05-02 13:29 | Outpatient (CLI) | payer MEDICARE, MEDICAID ==
[2018-05-02 13:30] VITALS: BP 129/61
--- NOTE | 2018-05-02 14:06 | GI Progress Note ---
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 Duran. Assessment/Plan SUMMARY OF FINDINGS reviewed with patient: 1. Persistent distal common bile duct stricture of unknown etiology at this time. 2. Status post biopsy of the ampulla and distal common bile duct to rule out autoimmune cholangiopathy >> pathology incomplete, additional biopsy required. 3. Status post stent exchange. RECOMMENDATIONS: add trulance for constipation cont ursodiol cont Marinol qHS RTC x 2 months plan for ERCP + metallic stent placement The patient was seen and examined at bedside and all new and available data was reviewed in the patients chart. I agree with the above findings, impression and plan. (Patient seen earlier today. Signature stamp does not reflect patient encounter time.). - Abdirashid Duran MD Subjective Gastrointestinal/Abdominal: Reports: no symptoms Subjective overall feels better Objective T 98.2 BP 129/61 P 95 96 RA General Appearance: WD/WN, no apparent distress, alert, thin Cardiovascular: normal rate Respiratory/Chest: normal breath sounds, no respiratory distress Abdominal Exam: normal bowel sounds, non tender, soft Extremities: normal range of motion, non-tender Chris Torrez WAFER FABRICATION OPERATOR May 02, 2018 14:06
[2018-05-05] MEDS ORDERED: MARINOL2.5 MG ORAL (14:06)
== END 2018-05-02 13:59 | disposition home or self-care (01) ==
LOC: PAN 13:29
DX: R68.89 Other general symptoms and signs (principal); K83.1 Obstruction of bile duct; K70.30 Alcoholic cirrhosis of liver without ascites; I10 Essential (primary) hypertension
CPT/HCPCS: 99212

== ENCOUNTER 2018-09-20 09:59 | Outpatient (CLI) | payer MEDICARE, MEDICAID ==
[~2018-09-20 09:59] MED LIST changes: +MARINOL2.5 MG ORAL
[2018-09-20 10:15] VITALS: BP 138/68
--- NOTE | 2018-09-20 10:31 | General Progress Note ---
Assessment/Plan Problem List: (1) ETOH abuse ICD Codes: F10.10 - Alcohol abuse, uncomplicated SNOMED: 52078052 (2) High total IgG ICD Codes: R68.89 - Other general symptoms and signs SNOMED: 888921321 (3) Biliary stricture ICD Codes: K83.1 - Obstruction of bile duct SNOMED: 058417544 (4) HTN (hypertension) ICD Codes: I10 - Essential (primary) hypertension SNOMED: 29570603 (5) Alcoholic cirrhosis ICD Codes: K70.30 - Alcoholic cirrhosis of liver without ascites SNOMED: 081247560 (6) Jaundice ICD Codes: R17 - Unspecified jaundice SNOMED: 43114898 Assessment/Plan: plan ERCP this week Subjective ROS Limited/Unobtainable: Yes Allergies: Coded Allergies: No Known Allergies (Unverified , 12/27/17) Objective General Appearance: alert EENT: normal ENT inspection Neck: supple Cardiovascular: normal rate Respiratory/Chest: lungs clear Abdomen: normal bowel sounds, non tender, soft Extremities: non-tender Abdirashid Duran MD September 20, 2018 10:31
[2018-09-20] MEDS ORDERED: COLON HERBAL C1 EACH PO (13:57)
[2018-09-20] MEDS ORDERED: VITAMIN D1000 UNI1 ORAL (13:57)
== END 2018-09-20 12:54 | disposition home or self-care (01) ==
LOC: PAN 09:59
DX: K83.1 Obstruction of bile duct (principal); F10.10 Alcohol abuse, uncomplicated; R68.89 Other general symptoms and signs; I10 Essential (primary) hypertension; K70.30 Alcoholic cirrhosis of liver without ascites; R17 Unspecified jaundice
CPT/HCPCS: 99212

== ENCOUNTER 2018-09-23 10:26 | Day surgery (SDC) | payer MEDICARE, MEDICAID ==
[2018-09-23] VITALS (8 sets, daily range): BP systolic 118–167; BP diastolic 62–95
[~2018-09-23] VITALS: Ht 162.6 cm; Wt 52.2 kg
[~2018-09-23 10:26] MED LIST changes: +COLON HERBAL C1 EACH PO; +Midazolam 2mg/2ml Inj ONE; +VITAMIN D1000 UNI1 ORAL; +fentaNYL 100 mcg/2 mL IV ONE
[2018-09-23 12:01] LABS: BASOPHILS % (AUTO) 1.3 % (0.0-2.0); HEMATOCRIT 40.4 % (37.0-47.0); HEMOGLOBIN 12.9 G/DL (12.0-16.0); LYMPHOCYTES % (AUTO) 38.6 % (20.0-45.0); MEAN CORPUSCULAR VOLUME 93 FL (80-99); MONOCYTES % (AUTO) 8.1 % (1.0-10.0); NEUTROPHILS % (AUTO) 50.1 % (45.0-75.0); PLATELET COUNT 241 K/UL (150-450); RED BLOOD COUNT 4.35 M/UL (4.20-5.40); RED CELL DISTRIBUTION WIDTH 11.6 % (11.6-14.8); WHITE BLOOD COUNT 4.9 K/UL (4.8-10.8)
[2018-09-23 12:11] LABS: ANION GAP 7 mmol/L (5-15); BLOOD UREA NITROGEN 11 mg/dL (7-18); CALCIUM 9.3 MG/DL (8.5-10.1); CARBON DIOXIDE 29 MMOL/L (21-32); CHLORIDE 102 MMOL/L (98-107); CREATININE 0.8 MG/DL (0.55-1.30); POTASSIUM 4.2 MMOL/L (3.5-5.1); SODIUM 137 MMOL/L (136-145)
[2018-09-23 12:15] LABS: ALANINE AMINOTRANSFERASE 16 U/L (12-78); ALBUMIN 3.4 G/DL (3.4-5.0); ALBUMIN/GLOBULIN RATIO 0.7 (1.0-2.7); ALKALINE PHOSPHATASE 120 U/L (46-116); ASPARTATE AMINO TRANSFERASE 22 U/L (15-37); BILIRUBIN,TOTAL 0.6 MG/DL (0.2-1.0)
[2018-09-23] MEDS ORDERED: Iothalamate Meglumine 60% 30ML INJ ONE ×2 (12:50→13:25)
[2018-09-23] MEDS ORDERED: Propofol 200mg/20ml IV ONE (13:09)
[2018-09-23] MEDS ORDERED: Lidocaine 1% MPF 10mg/ml 5ml ONE (13:09)
[2018-09-23] MEDS ORDERED: Esmolol 100mg/10ml Inj ONE (13:09)
--- NOTE | 2018-09-23 13:17 | Pre-Procedure Note/Attestation ---
Pre-Procedure Note/Attestation Complete Prior to Procedure Planned Procedure: not applicable Procedure Narrative: ercp Indications for Procedure Pre-Operative Diagnosis: biliary stricture Attestation I attest that I discussed the nature of the procedure; its benefits; risks and complications; and alternatives (and the risks and benefits of such alternatives ), prior to the procedure, with the patient (or the patient's legal novelties sales representative). I attest that, if there was a reasonable possibility of needing a blood transfusion, the patient (or the patient's legal novelties sales representative) was given the [facility] standardized written summary, pursuant to the [place] Blood Safety Act ([place] Health and Safety Code # 1645, as amended). I attest that I re-evaluated the patient just prior to the surgery and that there has been no change in the patient's H&P, except as documented below: Abdirashid Duran MD September 23, 2018 13:17
--- NOTE | 2018-09-23 13:18 | Short Stay Surgery H&P ---
History of Present Illness History of Present Illness Chief Complaint biliary stricture HPI Jeannette Rodriguez is a 67 year old female who was admitted on for Stent Removal Patient History Allergies: Coded Allergies: No Known Allergies (Unverified , 12/27/17) PAST MEDICAL HISTORY: (1) ETOH abuse (2) High total IgG (3) Biliary stricture (4) HTN (hypertension) (5) Alcoholic cirrhosis (6) Jaundice Medication History Scheduled Cholecalciferol (Vitamin D3)* (Vitamin D*), Unknown Dose ORAL DAILY, (Reported) Simvastatin (Zocor), 20 MG ORAL BEDTIME, (Reported) Triamterene/Hydrochlorothiazide* (Dyazide 37.5-25 Mg Tab*), 1 TAB ORAL DAILY, ( Reported) Ursodiol (Ursodiol*), 300 MG ORAL TWICE A DAY, (Reported) Miscellaneous Medications Herbal Drugs (Colon Herbal Cleanser), 1 EACH PO, (Reported) Discontinued Medications Dronabinol* (Marinol*), Unknown Dose ORAL THREE TIMES A DAY, (Reported) Discontinued Reason: Pt stopped taking med Review of Systems Cardiovascular: Reports: no symptoms Respiratory: Reports: no symptoms Gastrointestinal: Reports: no symptoms Genitourinary: Reports: no symptoms Neurologic: Reports: no symptoms Endocrine: Reports: no symptoms Hematologic: Reports: no symptoms Physical Exam Vital Signs Last Vital Signs Date Time Temp Pulse Resp B/P (MAP) Pulse Ox O2 Delivery O2 Flow Rate FiO2 09/23/18 11:16 Room Air 09/23/18 11:09 97.4 83 18 135/68 97 Labs Laboratory Tests Test 09/23/18 11:40 White Blood Count 4.9 K/UL (4.8-10.8) Red Blood Count 4.35 M/UL (4.20-5.40) Hemoglobin 12.9 G/DL (12.0-16.0) Hematocrit 40.4 % (37.0-47.0) Mean Corpuscular Volume 93 FL (80-99) Mean Corpuscular Hemoglobin 29.6 PG (27.0-31.0) Mean Corpuscular Hemoglobin Concent 31.9 G/DL (32.0-36.0) L Red Cell Distribution Width 11.6 % (11.6-14.8) Platelet Count 241 K/UL (150-450) Mean Platelet Volume 7.6 FL (6.5-10.1) Neutrophils (%) (Auto) 50.1 % (45.0-75.0) Lymphocytes (%) (Auto) 38.6 % (20.0-45.0) Monocytes (%) (Auto) 8.1 % (1.0-10.0) Eosinophils (%) (Auto) 2.0 % (0.0-3.0) Basophils (%) (Auto) 1.3 % (0.0-2.0) Sodium Level 137 MMOL/L (136-145) Potassium Level 4.2 MMOL/L (3.5-5.1) Chloride Level 102 MMOL/L (98-107) Carbon Dioxide Level 29 MMOL/L (21-32) Anion Gap 7 mmol/L (5-15) Blood Urea Nitrogen 11 mg/dL (7-18) Creatinine 0.8 MG/DL (0.55-1.30) Estimat Glomerular Filtration Rate > 60 mL/min (>60) Glucose Level 71 MG/DL (74-106) L Calcium Level 9.3 MG/DL (8.5-10.1) Total Bilirubin 0.6 MG/DL (0.2-1.0) Aspartate Amino Transf (AST/SGOT) 22 U/L (15-37) Alanine Aminotransferase (ALT/SGPT) 16 U/L (12-78) Alkaline Phosphatase 120 U/L (46-116) H Total Protein 8.5 G/DL (6.4-8.2) H Albumin 3.4 G/DL (3.4-5.0) Globulin 5.1 g/dL Albumin/Globulin Ratio 0.7 (1.0-2.7) L Skin: normal HENT: normal Heart: normal Lungs: normal Abdomen: normal Extremities: normal Plan Plan of Care ercp Attestation Are the patient's medical conditions optimized for surgery? Attestation Response: yes Abdirashid Duran MD September 23, 2018 13:18
--- NOTE | 2018-09-23 13:41 | Anethesia Preoperative Eval ---
Anesthesia Pre-op PMH/ROS General Date of Evaluation: September 23, 2018 Time of Evaluation: 13:08 Anesthesiologist: Rhiannon Thomas CRNA ASA Score: ASA 3 Mallampati Score Class I : Soft palate, uvula, fauces, pillars visible Class II: Soft palate, uvula, fauces visible Class III: Soft palate, base of uvula visible Class IV: Only hard plate visible Mallampati Classification: Class II Surgeon: Renee Diagnosis: biliary stent Surgical Procedure: ERCP, stent removal, balloon dilation Anesthesia History: none Social History: smoking, alcohol use - hx of etoh abuse, now sober Family History: no anesthesia problems Allergies: Coded Allergies: No Known Allergies (Unverified , 12/27/17) Medications: see eMAR Patient NPO?: Yes Past Medical History Cardiovascular: Reports: HTN, other - hyperlipidemia; Denies: CAD, [place], valve dz, arrhythmia Gastrointestinal/Genitourinary: Reports: other - alcoholic cirrohis, biliary stricture s/p ERCP and lap james; Denies: GERD, CRI, ESRD Neurologic/Psychiatric: Reports: depression/anxiety; Denies: dementia, CVA, TIA, other Endocrine: Denies: DM, hypothyroidism, steroids, other HEENT: Denies: cataract (L), cataract (R), glaucoma, [place] (L), [place] (R), other Hematology/Immune: Reports: anemia Musculoskeletal/Integumentary: Denies: OA, RA, DJD, DDD, edema, other PMH Narrative: as note above PSxH Narrative: lap james, ERCP Anesthesia Pre-op Phys. Exam Physician Exam Last Vital Signs Date Time Temp Pulse Resp B/P (MAP) Pulse Ox O2 Delivery O2 Flow Rate FiO2 09/23/18 11:16 Room Air 09/23/18 11:09 97.4 83 18 135/68 97 Constitutional: NAD Neurologic: CN 2-12 intact Cardiovascular: RRR Respiratory: CTA Gastrointestinal: S/NT/ND Airway Exam Mallampati Score: Class II MO: full Neck: FROM TMD: > 3 FB ROM: full Teeth: missing, broken Dentures: no upper, no lower Anesthesia Pre-op A/P Labs Hematology Test 09/23/18 11:40 White Blood Count 4.9 K/UL (4.8-10.8) Red Blood Count 4.35 M/UL (4.20-5.40) Hemoglobin 12.9 G/DL (12.0-16.0) Hematocrit 40.4 % (37.0-47.0) Mean Corpuscular Volume 93 FL (80-99) Mean Corpuscular Hemoglobin 29.6 PG (27.0-31.0) Mean Corpuscular Hemoglobin Concent 31.9 G/DL (32.0-36.0) L Red Cell Distribution Width 11.6 % (11.6-14.8) Platelet Count 241 K/UL (150-450) Mean Platelet Volume 7.6 FL (6.5-10.1) Neutrophils (%) (Auto) 50.1 % (45.0-75.0) Lymphocytes (%) (Auto) 38.6 % (20.0-45.0) Monocytes (%) (Auto) 8.1 % (1.0-10.0) Eosinophils (%) (Auto) 2.0 % (0.0-3.0) Basophils (%) (Auto) 1.3 % (0.0-2.0) Chemistry Test 09/23/18 11:40 Sodium Level 137 MMOL/L (136-145) Potassium Level 4.2 MMOL/L (3.5-5.1) Chloride Level 102 MMOL/L (98-107) Carbon Dioxide Level 29 MMOL/L (21-32) Anion Gap 7 mmol/L (5-15) Blood Urea Nitrogen 11 mg/dL (7-18) Creatinine 0.8 MG/DL (0.55-1.30) Estimat Glomerular Filtration Rate > 60 mL/min (>60) Glucose Level 71 MG/DL (74-106) L Calcium Level 9.3 MG/DL (8.5-10.1) Total Bilirubin 0.6 MG/DL (0.2-1.0) Aspartate Amino Transf (AST/SGOT) 22 U/L (15-37) Alanine Aminotransferase (ALT/SGPT) 16 U/L (12-78) Alkaline Phosphatase 120 U/L (46-116) H Total Protein 8.5 G/DL (6.4-8.2) H Albumin 3.4 G/DL (3.4-5.0) Globulin 5.1 g/dL Albumin/Globulin Ratio 0.7 (1.0-2.7) L Studies Pre-op Studies: EKG - NSR, inferior infarct, anterior infarct Risk Assessment & Plan Assessment: ASA 3, ok to proceed Plan: MAC Status Change Before Surgery: No Pre-Antibiotics Given Within 1 Hr of Incision: Rhiannon Castillo CRNA September 23, 2018 13:41
--- NOTE | 2018-09-23 13:57 | Endoscopy Procedure Note ---
Endoscopy Procedure Note General Indication for Procedure: biliary stricture Procedures Performed: ERCP Operative Findings/Diagnosis: same Specimen: none Pt Tolerated Procedure Well: Yes Estimated Blood Loss: none Anesthesia Anesthesiologist: joseline Anesthesia: MAC Inserted Devices Implant(s) used?: No GI Core Measures 50 yrs or older w/o bx or poly: Not Applicable 10yrs. F/U not recommended: Not Applicable Abdirashid Duran MD September 23, 2018 13:57
--- NOTE | 2018-09-23 14:06 | Immediate Post-Op Evaluation ---
Immediate Post-Op Evalulation Immediate Post-Op Evalulation Procedure: ERCP, stent removal, balloon dilation Date of Evaluation: September 23, 2018 Time of Evaluation: 14:00 IV Fluids: 0.9 NS 500 ml Blood Pressure Systolic: 167 Blood Pressure Diastolic: 95 Pulse Rate: 98 Respiratory Rate: 18 O2 Sat by Pulse Oximetry: 100 Temperature (Fahrenheit): 97.4 Pain Score (1-10): 6 Nausea: No Vomiting: No Complications none Patient Status: awake, reacts Hydration Status: adequate Given Within 1 Hr of Incision: Rhiannon Castillo CRNA September 23, 2018 14:06
[2018-09-23] MEDS: Hydromorphone 0.5mg/0.5ml inj IVP PRN ×2 (14:09→14:35)
--- NOTE | 2018-09-23 15:03 | 48 Hour Post Anesthesia Eval ---
Post Anesthesia Evaluation Procedure: ERCP, stent removal, balloon dilation Date of Evaluation: September 23, 2018 Time of Evaluation: 15:02 Blood Pressure Systolic: 118 0: 62 Pulse Rate: 98 Respiratory Rate: 17 Temperature (Fahrenheit): 97.3 O2 Sat by Pulse Oximetry: 98 Airway: patent Nausea: No Vomiting: No Pain Intensity: 0 Hydration Status: adequate Cardiopulmonary Status: stable Mental Status/LOC: patient returned to baseline Follow-up Care/Observations: per GI Post-Anesthesia Complications: none Follow-up care needed: N/A Rhiannon Thomas CRNA September 23, 2018 15:03
--- NOTE | 2018-09-23 15:12 | Diagnostic Imaging Report ---
Indication: Abdominal pain. ERCP. Findings: Fluoroscopically captured images of the right upper quadrant of the abdomen demonstrate an endoscope with cannulation of the common bile duct and injection of contrast material. Multiple images show removal of the CBD stent. The biliary ducts are dilated and demonstrated on multiple images. The last image shows a balloon angioplasty of the distal part of the CBD. Impression: ERCP as above
--- NOTE | 2018-09-23 21:30 | Procedure Note ---
DATE OF PROCEDURE: 09/23/2018 SURGEON: Abdirashid Duran M.D. PROCEDURE: ERCP with stent removal, sphincterotomy, and dilation. ANESTHESIA: Per Lanie BUTT. INSTRUMENT: Olympus adult flexible ERCP scope. INDICATION: Biliary stricture. The procedure, risks, benefits, and possible consequences, including hemorrhage, aspiration, perforation and infection, and alternative treatments, were explained to the patient/legal guardian by Dr. Abdirashid Duran and the patient/legal guardian understood and accepted these risks. DESCRIPTION OF PROCEDURE: After informed consent was obtained and the patient was adequately sedated, Olympus ERCP scope was advanced from the mouth into the second portion of the duodenum. Using a snare, the stent which was protruding through the common bile duct, was successfully removed. Then, we used a balloon to cannulate the common bile duct. Initial cholangiogram showed evidence of dilated proximal common bile duct and mild narrowing at the distal common bile duct approaching the ampulla. Then over a guidewire, we performed first an 8 mm balloon dilation. We felt that still the was not adequate. I decided to extend the sphincterotomy. Then over a guidewire, we extended the sphincterotomy. After that, the bile was flowing much better. At this time, we decided not to put the stent and see how the patient does. SUMMARY OF FINDINGS: 1. Status post ERCP. 2. Stent removal. 3. Dilation. 4. Extension of the sphincterotomy. RECOMMENDATIONS: The patient to be discharged to come back in one week for liver function tests. If the liver enzymes are completely normal, we will continue monitoring her. If the liver enzymes start going up, then the patient will need to be scheduled for another ERCP and possible metallic stent placement. Abdirashid Duran M.D. DR: ARLENE JOB#: [id number] CC:
== END 2018-09-23 16:05 | disposition home or self-care (01) ==
LOC: GAS 10:26
DX: K83.1 Obstruction of bile duct (principal); I10 Essential (primary) hypertension; Z79.899 Other long term (current) drug therapy; E78.5 Hyperlipidemia, unspecified; F32.9 Major depressive disorder, single episode, unspecified; F41.9 Anxiety disorder, unspecified; Z90.49 Acquired absence of other specified parts of digestive tract
CPT/HCPCS: 36415; 43277; 74328; 76000; 80053; 85025; J1170; J2250; J2704; J3010; Q9961; 94003; 94150

== ENCOUNTER 2018-10-05 13:23 | Outpatient (CLI) | payer MEDICARE, MEDICAID ==
[~2018-10-05 13:23] MED LIST changes: -Midazolam 2mg/2ml Inj ONE; -fentaNYL 100 mcg/2 mL IV ONE
[2018-10-05 13:40] VITALS: BP 131/70
--- NOTE | 2018-10-05 13:54 | General Progress Note ---
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 - Other general symptoms and signs SNOMED: 361508145 (2) Biliary stricture ICD Codes: K83.1 - Obstruction of bile duct SNOMED: 145536029 (3) HTN (hypertension) ICD Codes: I10 - Essential (primary) hypertension SNOMED: 17629448 (4) Alcoholic cirrhosis ICD Codes: K70.30 - Alcoholic cirrhosis of liver without ascites SNOMED: 303183703 (5) Jaundice ICD Codes: R17 - Unspecified jaundice SNOMED: 67114224 Assessment/Plan: s/p ERCP and stent removal CMP for today RTC 1 month colonoscopy talks for the next visit Subjective ROS Limited/Unobtainable: Yes Allergies: Coded Allergies: No Known Allergies (Unverified , 12/27/17) Objective General Appearance: alert EENT: normal ENT inspection Neck: supple Cardiovascular: normal rate Respiratory/Chest: lungs clear Abdomen: normal bowel sounds, non tender, soft Extremities: non-tender Abdirashid Duran MD October 05, 2018 13:54
[2018-10-05 17:13] LABS: ALANINE AMINOTRANSFERASE 16 U/L (12-78); ALBUMIN 3.4 G/DL (3.4-5.0); ALBUMIN/GLOBULIN RATIO 0.7 (1.0-2.7); ALKALINE PHOSPHATASE 121 U/L (46-116); ANION GAP 8 mmol/L (5-15); ASPARTATE AMINO TRANSFERASE 21 U/L (15-37); BILIRUBIN,TOTAL 0.4 MG/DL (0.2-1.0); BLOOD UREA NITROGEN 8 mg/dL (7-18); CALCIUM 9.8 MG/DL (8.5-10.1); CARBON DIOXIDE 29 MMOL/L (21-32); CHLORIDE 99 MMOL/L (98-107); CREATININE 0.8 MG/DL (0.55-1.30); POTASSIUM 3.8 MMOL/L (3.5-5.1); SODIUM 136 MMOL/L (136-145)
== END 2018-10-05 15:31 | disposition home or self-care (01) ==
LOC: PAN 13:23
DX: K83.1 Obstruction of bile duct (principal); R68.89 Other general symptoms and signs; I10 Essential (primary) hypertension; K70.30 Alcoholic cirrhosis of liver without ascites; R17 Unspecified jaundice
CPT/HCPCS: 36415; 80053

== ENCOUNTER 2019-02-14 09:33 | Outpatient (CLI) | payer MEDICARE, MEDICAID ==
[~2019-02-14 09:33] MED LIST changes: +MIRALAX17 G2 ORAL
--- NOTE | 2019-02-14 10:13 | General Progress Note ---
Assessment/Plan Assessment/Plan: (1) Constipation ICD Codes: K59.00 - Constipation, unspecified SNOMED: 58010850 (2) Biliary stricture ICD Codes: K83.1 - Obstruction of bile duct SNOMED: 950226689 (3) HTN (hypertension) ICD Codes: I10 - Essential (primary) hypertension SNOMED: 57730351 (4) Alcoholic cirrhosis ICD Codes: K70.30 - Alcoholic cirrhosis of liver without ascites SNOMED: 777756012 (5) Jaundice ICD Codes: R17 - Unspecified jaundice SNOMED: 12774874 Status: stable Assessment/Plan History of biliary stricture status post ERCP with stent removal MiraLAX Refill for ursodiol CBC and CMP ordered Return to clinic in 3 month abd us next visit Subjective ROS Limited/Unobtainable: Yes Allergies: Coded Allergies: No Known Allergies (Unverified , 12/27/17) Objective General Appearance: alert EENT: normal ENT inspection Neck: supple Cardiovascular: normal rate Respiratory/Chest: decreased breath sounds Abdomen: normal bowel sounds, non tender, soft Extremities: non-tender Abdirashid Duran MD Feb 14, 2019 10:13
[2019-02-14 12:06] VITALS: BP 144/71
[2019-02-14 14:02] LABS: BASOPHILS % (AUTO) 0.7 % (0.0-2.0); EOSINOPHILS % (AUTO) 1.7 % (0.0-3.0); HEMATOCRIT 42.5 % (37.0-47.0); HEMOGLOBIN 13.5 G/DL (12.0-16.0); LYMPHOCYTES % (AUTO) 33.5 % (20.0-45.0); MEAN CORPUSCULAR VOLUME 91 FL (80-99); MONOCYTES % (AUTO) 8.5 % (1.0-10.0); NEUTROPHILS % (AUTO) 55.7 % (45.0-75.0); PLATELET COUNT 252 K/UL (150-450); RED BLOOD COUNT 4.64 M/UL (4.20-5.40); RED CELL DISTRIBUTION WIDTH 11.3 % (11.6-14.8); WHITE BLOOD COUNT 5.6 K/UL (4.8-10.8)
[2019-02-14 14:10] LABS: ALANINE AMINOTRANSFERASE 15 U/L (12-78); ALBUMIN 3.5 G/DL (3.4-5.0); ALBUMIN/GLOBULIN RATIO 0.6 (1.0-2.7); ALKALINE PHOSPHATASE 132 U/L (46-116); ANION GAP 7 mmol/L (5-15); ASPARTATE AMINO TRANSFERASE 20 U/L (15-37); BILIRUBIN,TOTAL 0.5 MG/DL (0.2-1.0); BLOOD UREA NITROGEN 7 mg/dL (7-18); CALCIUM 9.8 MG/DL (8.5-10.1); CARBON DIOXIDE 30 MMOL/L (21-32); CHLORIDE 103 MMOL/L (98-107); CREATININE 0.8 MG/DL (0.55-1.30); POTASSIUM 4.1 MMOL/L (3.5-5.1); SODIUM 140 MMOL/L (136-145)
== END 2019-02-14 13:08 | disposition home or self-care (01) ==
LOC: PAN 09:33
DX: K59.00 Constipation, unspecified (principal); K83.1 Obstruction of bile duct; I10 Essential (primary) hypertension; K70.30 Alcoholic cirrhosis of liver without ascites; R17 Unspecified jaundice
CPT/HCPCS: 36415; 80053; 85025

== ENCOUNTER 2019-05-22 13:20 | Outpatient (CLI) | payer MEDICARE, MEDICAID ==
--- NOTE | 2019-05-22 13:48 | General Progress Note ---
Assessment/Plan Problem List: (1) Biliary stricture ICD Codes: K83.1 - Obstruction of bile duct SNOMED: 689839945 (2) HTN (hypertension) ICD Codes: I10 - Essential (primary) hypertension SNOMED: 34455720 (3) Alcoholic cirrhosis ICD Codes: K70.30 - Alcoholic cirrhosis of liver without ascites SNOMED: 857601741 (4) Jaundice ICD Codes: R17 - Unspecified jaundice SNOMED: 93041069 (5) Constipation ICD Codes: K59.00 - Constipation, unspecified SNOMED: 40446408 (6) High total IgG ICD Codes: R68.89 - Other general symptoms and signs SNOMED: 465937313 (7) HLD (hyperlipidemia) ICD Codes: E78.5 - Hyperlipidemia, unspecified SNOMED: 92314208 Assessment/Plan: plan colonoscopy labs on procedure day last ERCP 09/2018 Subjective ROS Limited/Unobtainable: Yes Allergies: Coded Allergies: No Known Allergies (Unverified , 12/27/17) Objective General Appearance: alert EENT: PERRL/EOMI Neck: supple Cardiovascular: normal rate Respiratory/Chest: decreased breath sounds Abdomen: normal bowel sounds, non tender, soft Extremities: non-tender Abdirashid Duran MD May 22, 2019 13:48
[2019-05-22 15:36] VITALS: BP 146/78
== END 2019-05-22 15:55 | disposition home or self-care (01) ==
LOC: PAN 13:20
DX: K83.1 Obstruction of bile duct (principal); I10 Essential (primary) hypertension; K70.30 Alcoholic cirrhosis of liver without ascites; R17 Unspecified jaundice; K59.00 Constipation, unspecified; R68.89 Other general symptoms and signs; E78.5 Hyperlipidemia, unspecified
CPT/HCPCS: 99212

== ENCOUNTER 2019-12-07 14:03 | Outpatient (CLI) | payer MEDICARE, MEDICAID ==
--- NOTE | 2019-12-07 15:22 | General Progress Note ---
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
== END 2019-12-07 16:03 | disposition home or self-care (01) ==
LOC: PAN 14:03
DX: K83.1 Obstruction of bile duct (principal); I10 Essential (primary) hypertension; K70.30 Alcoholic cirrhosis of liver without ascites; R17 Unspecified jaundice; K59.00 Constipation, unspecified; R68.89 Other general symptoms and signs; E78.5 Hyperlipidemia, unspecified
CPT/HCPCS: 99212